=== PATIENT | female | born 1970 | race Two or more races ===

== ENCOUNTER 2019-12-05 07:11 | Day surgery (SDC) | payer OTHER | END 2019-12-05 17:15 | disposition home or self-care (01) | LOC: CIR.AMB 07:11 | DX: D24.1 Benign neoplasm of right breast (principal) ==

== ENCOUNTER 2023-10-19 06:00 | Day surgery (SDC) | payer OTHER ==
[2023-10-17 09:52] LABS: HEMATOCRIT 39.9 % (36.0-45.00); HEMOGLOBIN 13.5 g/dL (12.0-15.00); MEAN CELL VOLUME 88.6 fL (80.00-100.00); MEAN CORPUSCULAR HGB CONC 33.8 g/dl (32.0-36.0); PLATELET COUNT 224 K/uL (150-450); RED CELL DISTRIBUTION WIDTH 13.5 % (11.5-14.5)
[2023-10-17 09:55] LABS: URINE APPEARANCE Clear; URINE BILIRRUBIN Negative (NEGATIVE); URINE BLOOD Negative; URINE COLOR Yellow; URINE GLUCOSE Negative (NEGATIVE); URINE LEUKOCYTE Negative; URINE NITRATE Negative; URINE PROTEIN Negative (NEGATIVE); URINE UROBILINOGEN 0.2 E.U./dl
[2023-10-17 09:56] LABS: URINE BACTERIA 32.7 uL (0.0-1933); URINE EPITHELIAL CELLS 1.9 uL (0.0-38.8); URINE WBC 4.9 uL (0.0-23.2)
[2023-10-17 10:15] LABS: INR 0.99; PARTIAL THROMBOPLASTIN TIME 28.4 SECONDS (22.0-34.0); PROTHROMBIN TIME 10.4 SECONDS (9.0-11.5)
[2023-10-17 10:29] LABS: CALCIUM 9.5 mg/dL (8.5-10.1); CREATININE SERUM 0.51 mg/dL (0.55-1.02); GFR 125.2; POTASSIUM 4.71 mEq/L (3.5-5.1)
== END 2023-10-19 12:15 | disposition home or self-care (01) ==
LOC: CIR.AMB 06:00
PROVIDERS: ATTEND Urology
DX: N13.1 Hydronephrosis with ureteral stricture, not elsewhere classified (principal); N20.0 Calculus of kidney; Z20.822 Contact with and (suspected) exposure to COVID-19

== ENCOUNTER 2023-10-31 10:17 | Emergency (ER) | payer OTHER ==
[~2023-10-31] VITALS: Ht 165.1 cm; Wt 67.6 kg
[2023-10-31] MEDS ORDERED: CIPROFLOXACIN500 MG PO (11:10)
[2023-10-31] MEDS ORDERED: PHENAZOPYRIDIN100 MG PO (11:10)
[2023-10-31 12:08] LABS: HEMATOCRIT 35.7 % (36.0-45.00); HEMOGLOBIN 11.9 g/dL (12.0-15.00); MEAN CELL VOLUME 85.9 fL (80.00-100.00); MEAN CORPUSCULAR HEMOGLOBIN 28.8 pg (27.00-32.0); MEAN CORPUSCULAR HGB CONC 33.5 g/dl (32.0-36.0); PLATELET COUNT 237 K/uL (150-450); RED BLOOD COUNT 4.15 M/uL (4.00-6.00); RED CELL DISTRIBUTION WIDTH 13.6 % (11.5-14.5)
[2023-10-31 12:50] LABS: BILIRUBIN TOTAL 0.49 mg/dL (0.3-1.2); CALCIUM 8.6 mg/dL (8.5-10.1); CREATININE SERUM 0.54 mg/dL (0.55-1.02); GFR 117.21; GLOBULINA 3.2 G/DL (2.4-3.5); POTASSIUM 4.25 mEq/L (3.5-5.1); TOTAL PROTEIN 6.2 gm/dL (6.4-8.2)
[2023-10-31] MEDS ORDERED: ZYRTEC10 MG PO (13:22)
[2023-10-31] MEDS ORDERED: LASIX20 MG PO (13:22)
[2023-10-31] MEDS ORDERED: TUSNEL LIQUID178 ML PO (13:22)
== END 2023-10-31 13:30 | disposition home or self-care (01) ==
LOC: ER 10:18
PROVIDERS: General Practice
DX: R60.0 Localized edema (principal); Z20.822 Contact with and (suspected) exposure to COVID-19